=== PATIENT | male | born 1960 | race Caucasian/White ===

== ENCOUNTER 2023-05-20 17:23 | Emergency (ER) | payer SELFPAY ==
[2023-05-20 17:28] VITALS: BP 137/80; PULSE 78; RESP 15; TEMP 36.5; O2SAT 97; BMI 28.8
--- NOTE | 2023-05-20 17:29 | XRR_ITS ---
PROCEDURE INFORMATION: Exam: XR Right Shoulder Exam date and time: 05/20/2023 5:31 PM Age: 62 years old Clinical indication: Injury or trauma; Fall; Blunt trauma (contusions or hematomas); Shoulder; Right TECHNIQUE: Imaging protocol: Radiologic exam of the right shoulder. Views: 2 or more views. COMPARISON: No relevant prior studies available. FINDINGS: Bones/joints: Abnormal widening of the acromioclavicular joint measuring 6 mm (normal 5 mm or less) and coracoclavicular joint measuring 15 mm (normal 13 mm or less) with abnormal elevation of the distal right clavicle in relation to the acromion. No fracture identified. Soft tissues: Normal. XR/XR shoulder RT min 2V* [id number] IMPRESSION: 1. Abnormal widening of the acromioclavicular joint measuring 6 mm (normal 5 mm or less) and coracoclavicular joint measuring 15 mm (normal 13 mm or less) with abnormal elevation of the distal right clavicle in relation to the acromion. 2. No fracture identified.
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
[2023-05-20 17:40] VITALS: BP 137/80; PULSE 80; RESP 16; O2SAT 98
[2023-05-20 17:42] VITALS: BP 137/80; PULSE 80; RESP 16; O2SAT 98
== END 2023-05-20 17:46 | disposition home or self-care (01) ==
PROVIDERS: Emergency Provider Emergency Medicine
DX: S43.101A Unspecified dislocation of right acromioclavicular joint, initial encounter (principal); V86.59XA Driver of other special all-terrain or other off-road motor vehicle injured in nontraffic accident, initial encounter
CPT/HCPCS: 73030; 99283